=== PATIENT | male | born 1975 | race Caucasian/White ===

== ENCOUNTER 2016-09-03 19:26 | Inpatient (IN) | payer MEDICAID ==
[~2016-09-03] VITALS: Ht 170.2 cm; Wt 86.2 kg
[2016-09-03 19:47] VITALS: BP 138/88
[2016-09-03] MEDS ORDERED: NACL 0.9% 1,000 ML IV ONE ×2 (20:00→21:20)
--- NOTE | 2016-09-03 20:00 | NUR ---
Patient being evaluated by at bedside.
--- NOTE | 2016-09-03 20:08 | NUR ---
Patient ambulated to bed 05.
--- NOTE | 2016-09-03 20:10 | NUR ---
RT at bedside.
--- NOTE | 2016-09-03 20:58 | NUR ---
41Y/M PATIENT PRESENTS TO ED WITH C/O GENERALIZED WEAKNESS X 2 WKS. PT STATES HAS BEEN WEAK FOR 2 WEAK, NO FEVER, NO PAIN . DENIES N/V/D; SKIN IS PINK/WARM/DRY; AAOX4 WITH EVEN AND STEADY GAIT; LUNGS CLEAR BL; HR EVEN AND REGULAR; PT DENIES ANY FEVER, CP, SOB, OR COUGH AT THIS TIME; PATIENT STATES PAIN OF 0/10 AT THIS TIME; VSS; PATIENT POSITIONED FOR COMFORT; HOB ELEVATED; BEDRAILS UP X2; BED DOWN. ER MD MADE AWARE OF PT STATUS.
[2016-09-03] MEDS ORDERED: INSULIN HUMAN REGULAR 100 UNITS/ML 10 ML VIAL IVP ONE (21:20)
[2016-09-03] MEDS ORDERED: POTASSIUM CHLORIDE 10 MEQ TABER PO ONE (21:20)
[2016-09-03] MEDS ORDERED: DEXTROSE 50% 50 ML SYR IVP PRN (22:10)
[2016-09-03] MEDS ORDERED: HYDROcodone/APAP 7.5/325 MG 1 TAB PO PRN (22:10)
[2016-09-03] MEDS ORDERED: ACETAMINOPHEN 325 MG TAB PO PRN (22:10)
[2016-09-03] MEDS ORDERED: ONDANSETRON 4 MG/2 ML VIAL IVP PRN (22:10)
[2016-09-03] MEDS ORDERED: MORPHINE SULFATE 2 MG/ML SYR IVP PRN (22:10)
--- NOTE | 2016-09-03 22:22 | NUR ---
Patient will be admitted to care of . Admited to TELEMETRY. Will go to room 112B. Belongings list completed. Report to CORDELL VENCES.
--- NOTE | 2016-09-03 22:45 | NUR ---
RECEIVED PATIENT FROM ER VIA [facility]. PATIENT IS AAOX4 AND AMBULATORY. THERE IS A #20 IN THE LEFT AC. SITE IS DRY INTACT AND ASYMPTOMATIC. BREATH SOUNDS ARE CLEAR UPON AUSCULTATION AND BOWEL SOUNDS ARE ACTIVE. INITIAL ASSESSMENT COMPLETED. ORIENTED PATIENT AND JAYSON TO ROOM INCLUDING HOW TO USE CALL LIGHT WHEN REQUIRING ASSISTANCE AND HOW TO OPERATE TELEVISION. PATIENT AND VERBALIZED UNDERSTANDING. HOB AT 30 DEGREES WITH BED IN LOW POSITION. WILL CONTINUE TO MONITOR PATIENT.
--- NOTE | 2016-09-03 22:48 | NUR ---
MRSA COLLECTED. VITAL SIGNS ARE STABLE. TEMPERATURE IS 98, RR 20, 0/10 PAIN, 99% ON ROOM AIR, 130/76, AND HR IS 76.
[2016-09-03] MEDS: BLOOD GLUCOSE MONITORING 1 DEV DEV FS SCH (22:53)
--- NOTE | 2016-09-03 22:55 | NUR ---
SURGICAL PRODUCT SALES CONSULTANT SLY CALLED TO INFORMED THAT ORDERED ULTRASOUND STUDIES WILL BE PERFORMED IN THE MORNING. WILL ENDORSE TO DAY SHIFT. CHARGE NURSE RYAN LANDA MADE AWARE.
[2016-09-03] MEDS: NACL 0.9% 1,000 ML IV SCH (22:56)
[2016-09-03] MEDS: INSULIN DETEMIR 100 UNITS/ML 10 ML VIAL SUBQ SCH (22:59)
[2016-09-03] MEDS: INSULIN ASPART SLIDING SCALE 100 UNITS/ML VIAL SUBQ PRN (23:02)
--- NOTE | 2016-09-03 23:36 | NUR ---
PATIENT REQUESTED A SANDWICH. PROVIDED PATIENT WITH 1 TURKEY SANDWICH ON WHOLE WHEAT BREAD AND 1 BOX OF CRANBERRY JUICE. PATIENT'S NEEDS MET AT THIS TIME. CONTINUE TO MONITOR PATIENT.
[2016-09-03 23:45] VITALS: BP 130/76
--- NOTE | 2016-09-03 23:55 | NUR ---
REQUESTED SCDS FROM DALE FIGUEROA RN. CHARGE NURSE RYAN LANDA MADE AWARE.
[2016-09-04] VITALS: BP 118/73
--- NOTE | 2016-09-04 02:48 | NUR ---
ROUNDED ON PATIENT. PATIENT SLEEPING IN BED. NO SIGNS OF SOB OR DISCOMFORT NOTED. CALL LIGHT WITHIN PATIENT'S REACH. CONTINUE TO MONITOR PATIENT.
[2016-09-04] MEDS: NACL 0.9% 1,000 ML IV SCH ×4 (03:10→18:10)
[2016-09-04 04:00] VITALS: BP 109/65
--- NOTE | 2016-09-04 04:00 | NUR ---
PATIENT AWAKE IN BED. VITAL SIGNS ARE STABLE. NO REPORTS OF PAIN OR DISCOMFORT. EXPLAINED INDICATIONS AND BENEFITS OF SCDS FOR VTE PROPHYLAXIS. PATIENT VERBALIZED UNDERSTANDING. SCDS IN PLACE. PATIENT'S NEEDS MET AT THIS TIME. CONTINUE TO MONITOR PATIENT.
[2016-09-04] MEDS: BLOOD GLUCOSE MONITORING 1 DEV DEV FS SCH ×4 (06:26→20:53)
[2016-09-04] MEDS: INSULIN ASPART SLIDING SCALE 100 UNITS/ML VIAL SUBQ PRN ×4 (06:28→20:53)
--- NOTE | 2016-09-04 07:01 | NUR ---
PATIENT IN STABLE CONDITION. ALL NEEDS ATTENDED TO DURING SHIFT. ENDORSED CONTINUITY OF CARE TO LANDEN RN.
--- NOTE | 2016-09-04 07:02 | NUR ---
PT ALERT AND ORIENTED X4, TAJIK SPEAKING. BREATHING EVENLY AND UNLABORED, NO SIGNS OF ACUTE DISTRESS. SKIN IS WARM AND DRY. NO SIGNS OF ANY BOWEL/BLADDER DISCOMFORT. DENIES OF ANY PAIN AT THIS TIME. ALL NEEDS ATTENDED. SAFETY PRECAUTIONS MAINTAINED. CALL LIGHT WITHIN REACH.
--- NOTE | 2016-09-04 07:36 | NUR ---
PATIENT HAS BEEN SCREENED AND CATEGORIZED HIGH NUTRITION RISK. PATIENT WILL BE SEEN WITHIN 1-2 DAYS OF ADMISSION. 09/04/16-09/05/16 GENNY SCHWAB MS, RDN
[2016-09-04 08:00] VITALS: BP 101/58
[2016-09-04] MEDS: DOCUSATE SODIUM 100 MG GELCAP PO SCH (08:39)
[2016-09-04] MEDS: FAMOTIDINE 20 MG TAB PO SCH (08:39)
[2016-09-04] MEDS ORDERED: PNEUMOCOCCAL VACCINE 23 MCG/0.5 ML VIAL IMVAC SCH (09:00)
[2016-09-04] MEDS ORDERED: INFLUENZA VIRUS VACCINE QUAD 0.5 ML SYR IMVAC SCH (09:00)
--- NOTE | 2016-09-04 09:51 | NUR ---
09/04/2016 RD INITIAL ASSESSMENT COMPLETED PLEASE REFER TO NUTRITION ASSESSMENT UNDER CARE ACTIVITY FOR ESTIMATED NUTRITIONAL NEEDS. RD RECOMMENDATIONS: 1. CONTINUE ON CCHO 60 GM DIET WAS MEDICALLY APPROPRIATE AND TOLERATED BY PT. 2. RDN PROVIDED DM DIET EDUCATION TO PT. 3. RD WILL F/U 5-7 DAYS; LOW RISK. GENNY SCHWAB, , RDN
[2016-09-04] MEDS ORDERED: POTASSIUM CHLORIDE 10 MEQ TABER PO SCH (11:00)
[2016-09-04] MEDS: metFORMIN 500 MG TAB PO SCH ×2 (11:21→16:01)
[2016-09-04] MEDS ORDERED: POTASSIUM CHLORIDE 40 MEQ, LIDOCAINE 1% 25 MG in NACL 0.9% 250 ML IV SCH (11:30)
[2016-09-04 12:00] VITALS: BP 116/65
[2016-09-04] MEDS ORDERED: MAG SULF 2000 MG/WATER PREMIX 50 ML IV ONE (15:15)
--- NOTE | 2016-09-04 15:15 | NUR ---
NEW ORDERS RECEIVED FROM DR. PARSON. NOTED AND CARRIED OUT.
[2016-09-04 16:00] VITALS: BP 123/72
[2016-09-04] MEDS ORDERED: POTASSIUM CHLORIDE 40 MEQ, LIDOCAINE 1% 25 MG, MAGNESIUM SULFATE 50% 2,000 MG in NACL 0... IV SCH (16:30)
--- NOTE | 2016-09-04 18:50 | NUR ---
PT ALERT AND RESPONSIVE, NO SIGNS OF ACUTE DISTRESS. WILL ENDORSE TO ONCOMING HEAVY DUTY MECHANIC NURSE FOR CONTINUITY OF CARE.
--- NOTE | 2016-09-04 19:25 | NUR ---
RECEIVED REPORT FROM CORDELL SCHUSTER AT BEDSIDE. PT AAOX4. PT STABLE TALKING TO WHO IS AT BEDSIDE. PT HAS IV TO LEFT AC G 20; ASYMPTOMATIC, PATENT AND INTACT. PT HAS CSDS ON. PT'S SKIN IS INTACT. ORIENTED PT TO ROOM AND SURROUNDINGS AND USE OF CALL LIGHT. EXPLAINED PLAN OF CARE TO PT AND HE VERBALIZED UNDERSTANDING. WILL CONTINUE TO MONITOR PT.
[2016-09-04 20:00] VITALS: BP 118/70
[2016-09-04] MEDS: INSULIN DETEMIR 100 UNITS/ML 10 ML VIAL SUBQ SCH (20:52)
--- NOTE | 2016-09-04 20:55 | NUR ---
PT'S BLOOD SUGAR CHECKED, INSULIN GIVEN ORDERED. WILL CONTINUE TO MONITOR PT.
--- NOTE | 2016-09-04 23:45 | NUR ---
PT ON HIS PHONE. PT STABLE. WILL CONTINUE TO MONITOR PT.
[2016-09-05] VITALS: BP 123/78
[2016-09-05] MEDS: NACL 0.9% 1,000 ML IV SCH ×3 (01:35→06:17)
--- NOTE | 2016-09-05 01:45 | NUR ---
IV PUMP ALARMING FLUSHED AND INFUSING FLUIDS WELL. CALL LIGHT WITHIN REACH.
--- NOTE | 2016-09-05 03:40 | NUR ---
PT AMBULATED TO THE RESTROOM, PT BACK IN BED NOW. PT DENIES PAIN/DISCOMFORT. CALL LIGHT WITHIN REACH, WILL CONTINUE TO MONITOR PT.
[2016-09-05 04:00] VITALS: BP 96/58
--- NOTE | 2016-09-05 05:35 | NUR ---
PT SLEEPING AT THIS TIME, NO SIGNS OF DISTRESS/DISCOMFORT NOTED. WILL CONTINUE TO MONITOR PT.
[2016-09-05] MEDS: INSULIN ASPART SLIDING SCALE 100 UNITS/ML VIAL SUBQ PRN ×2 (05:54→11:48)
[2016-09-05] MEDS: BLOOD GLUCOSE MONITORING 1 DEV DEV FS SCH ×2 (05:55→11:46)
--- NOTE | 2016-09-05 07:25 | NUR ---
ENDORSED PT IN STABLE CONDITION TO RN LANDEN FOR CONTINUITY OF CARE.
--- NOTE | 2016-09-05 07:26 | NUR ---
PT ALERT AND ORIENTED X4, CZECH SPEAKING. BREATHING EVENLY AND UNLABORED, NO SIGNS OF ACUTE DISTRESS. SKIN IS WARM AND DRY. NO SIGNS OF ANY BOWEL/BLADDER DISCOMFORT. DENIES OF ANY PAIN AT THIS TIME. ALL NEEDS ATTENDED. SAFETY PRECAUTIONS MAINTAINED. CALL LIGHT WITHIN REACH.
[2016-09-05 07:52] VITALS: BP 101/66
[2016-09-05] MEDS: metFORMIN 500 MG TAB PO SCH ×2 (08:55→11:57)
[2016-09-05] MEDS: FAMOTIDINE 20 MG TAB PO SCH (08:55)
[2016-09-05] MEDS: DOCUSATE SODIUM 100 MG GELCAP PO SCH (08:56)
[2016-09-05] MEDS ORDERED: FLUCONAZOLE 100 MG TAB PO SCH (09:00)
--- NOTE | 2016-09-05 11:37 | NUR ---
WAS SEEN BY DR. PARSON, RECEIVED NEW MED ORDERS. NOVEMBER D/C HOME. NOTED AND CARRIED OUT.
[2016-09-05] MEDS ORDERED: FLUCONAZOLE200 M1 PO (11:41)
[2016-09-05] MEDS ORDERED: ONETOUCH VERIO1 EACH MC (11:41)
[2016-09-05] MEDS ORDERED: METFORMIN500 MG PO (11:41)
[2016-09-05 12:00] VITALS: BP 114/70
[2016-09-05] MEDS ORDERED: POTASSIUM CHLORIDE 20% 40 MEQ/15 ML UDC PO SCH (12:00)
[2016-09-05] MEDS ORDERED: MAGNESIUM OXIDE 400 MG TAB PO SCH (12:00)
--- NOTE | 2016-09-05 12:50 | NUR ---
PT ALERT AND RESPONSIVE, NO SIGNS OF ACUTE DISTRESS. MAY, D/C HOME ORDERED. EDUCATED TO F/U WITH PCP IN 1 WEEK. REVIEWED DISCHARGE PRESCRIPTIONS, INDICATIONS AND SIDE EFFECTS. PT. VERBALIZED UNDERSTANDING. IV LINE, TELE LEADS AND WRIST BANDS REMOVED. PERSONAL BELONGINGS WITH PT UPON DISCHARGE. PICKED UP BY FAMILY. TRANSPORTED HOME VIA PRIVATE AUTO.
== END 2016-09-05 12:50 | disposition home or self-care (01) | DRG 420 ==
LOC: MED 19:26 → MTU 22:18
PROVIDERS: ADMIT Student in an Organized Health Care Education/Training Program; ATTEND Student in an Organized Health Care Education/Training Program
DX: E11.65 Type 2 diabetes mellitus with hyperglycemia (principal); N17.0 Acute kidney failure with tubular necrosis; E43 Unspecified severe protein-calorie malnutrition; E87.2 Acidosis; D68.69 Other thrombophilia; B37.41 Candidal cystitis and urethritis; E83.42 Hypomagnesemia; E78.5 Hyperlipidemia, unspecified; E87.6 Hypokalemia; R82.4 Acetonuria; R09.02 Hypoxemia; Z82.49 Family history of ischemic heart disease and other diseases of the circulatory system; Z82.3 Family history of stroke

== ENCOUNTER 2018-06-01 18:30 | Emergency (ER) | payer MEDICAID ==
[~2018-06-01] VITALS: Ht 170.2 cm; Wt 74.8 kg
[~2018-06-01 18:30] MED LIST: FLUC200T6 PO; GLU500 PO; [UNRECOGNIZED DRUG - CODE] MC
--- NOTE | 2018-06-01 18:35 | NUR ---
[place] [employer] HERE WITH PT
[2018-06-01 18:38] VITALS: BP 145/79
[2018-06-01] MEDS ORDERED: KETOROLAC 30 MG/ML VIAL IM ONE (19:40)
[2018-06-01] MEDS ORDERED: DIAZEPAM 5 MG TAB PO ONE (19:40)
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
[2018-06-01 20:10] VITALS: BP 145/79
--- NOTE | 2018-06-01 20:11 | NUR ---
Patient discharged with v/s stable. Written and verbal after care instructions given and explained. Patient alert, oriented and verbalized understanding of instructions. Ambulatory with steady gait. All questions addressed prior to discharge. ID band removed. Patient advised to follow up with PMD. Rx of VALIUM, NAPROSYN given. Patient educated on indication of medication including possible reaction and side effects. Opportunity to ask questions provided and answered.
== END 2018-06-01 20:02 | disposition home or self-care (01) ==
LOC: MED 18:30
DX: S43.402A Unspecified sprain of left shoulder joint, initial encounter (principal); E11.9 Type 2 diabetes mellitus without complications; Z79.899 Other long term (current) drug therapy; V43.62XA Car passenger injured in collision with other type car in traffic accident, initial encounter; Y93.19 Activity, other involving water and watercraft; Y92.488 Other paved roadways as the place of occurrence of the external cause; Y99.8 Other external cause status
CPT/HCPCS: 72072; 96372; 99284; J1885

== ENCOUNTER 2018-10-22 16:16 | Emergency (ER) | payer MEDICAID ==
[~2018-10-22] VITALS: Ht 167.6 cm; Wt 87.7 kg
[2018-10-22 16:20] VITALS: BP 132/90
--- NOTE | 2018-10-22 16:20 | NUR ---
PT AMBULATED TO BED 04.
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
--- NOTE | 2018-10-22 16:29 | NUR ---
Patient being evaluated by physician at bedside.
[2018-10-22] MEDS ORDERED: ACETAMINOPHEN EXTRA STRENGTH 500 MG TAB PO ONE (16:30)
--- NOTE | 2018-10-22 16:50 | NUR ---
PT TAKEN TO CT
--- NOTE | 2018-10-22 16:56 | NUR ---
PT BACK FROM CT
[2018-10-22 18:02] VITALS: BP 130/89
== END 2018-10-22 18:02 | disposition home or self-care (01) ==
LOC: MED 16:16
DX: S00.03XA Contusion of scalp, initial encounter (principal); S00.01XA Abrasion of scalp, initial encounter; E11.9 Type 2 diabetes mellitus without complications; Z79.84 Long term (current) use of oral hypoglycemic drugs; Z79.899 Other long term (current) drug therapy; W00.0XXA Fall on same level due to ice and snow, initial encounter; Y93.51 Activity, roller skating (inline) and skateboarding; Y92.89 Other specified places as the place of occurrence of the external cause; Y99.8 Other external cause status
CPT/HCPCS: 70450; 99284